=== PATIENT | female | born 1990 | race Caucasian/White ===

== ENCOUNTER 2016-11-01 18:30 | Emergency (ER) | payer BC ==
[2016-11-01] MEDS ORDERED: Sodium Chloride 0.9% 1,000 ML IV ONE (19:13)
[2016-11-01] MEDS ORDERED: Famotidine 20 MG/2 ML SDV IVPUSH ONE (20:11)
[2016-11-01] MEDS ORDERED: Alum Hydrox/Mag Hydrox/Simeth 15 ML, Metoclopramide 5 MG, Lidocaine 2% 5 ML PO ONE ×3 (20:11)
[2016-11-01 20:34] LABS: CHLORIDE,CL 108 mmol/L (98-110); SODIUM,NA 141 mmol/L (136-146)
--- NOTE | 2016-11-01 20:35 | EDM.PDOC ---
ED HPI GENERAL MEDICAL PROBLEM - General Chief Complaint: Abdominal Pain Stated Complaint: ABDOMINAL PAIN Time Seen by Provider: 11/01/16 21:00 Source of Information: Reports: Patient History Limitations: Reports: No Limitations - History of Present Illness INITIAL COMMENTS - FREE TEXT/NARRATIVE: History of present illness: [26-year-old female comes in complaining of increased abdominal pain there she indicates her right upper quadrant and then indicates that it is more periumbilical. Patient indicates that she understands it's hard to pinpoint and in fact now the whole abdomen isn't pain. Patient indicates that she is nauseated other times she feels like she needs to have bowel movements and she would have an improvement of her pain but yet she indicates she is having bowel movements and she has not vomited.] Review of systems: As per history of present illness and below otherwise all systems reviewed and negative. Past medical history: As per history of present illness and as reviewed below otherwise noncontributory. Surgical history: As per history of present illness and as reviewed below otherwise noncontributory. Social history: No reported history of drug or alcohol abuse. Family history: As per history of present illness and as reviewed below otherwise noncontributory. Physical exam: HEENT: Atraumatic, normocephalic, pupils reactive, negative for conjunctival pallor or scleral icterus, mucous membranes moist, throat clear, neck supple, nontender, trachea midline. Lungs: Clear to auscultation, breath sounds equal bilaterally, chest nontender. Heart: S1S2, regular, negative for clicks, rubs, or JVD. Abdomen: Soft, nondistended, generalized nonspecific tenderness Negative for masses or hepatosplenomegaly. Negative for costovertebral tenderness. Pelvis: Stable nontender. Genitourinary: Deferred. Rectal: Deferred. Extremities: Atraumatic, negative for cords or calf pain. Neurovascular unremarkable. Neuro: Awake, alert, oriented. Cranial nerves II through XII unremarkable. Cerebellum unremarkable. Motor and sensory unremarkable throughout. Exam nonfocal. Diagnostics: [CBC, CMP, ultrasound of the gallbladder, CT of abdomen with contrast] Therapeutics: [] Impression: [Abdominal] Plan: [Refer to surgery for further diagnostic evaluation such as possibly HIDA scan.] Definitive disposition and diagnosis as appropriate pending reevaluation and review of above. 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: Reports: - Past Surgical History Respiratory Surgical History: Reports: Other (See Below) Other Respiratory Surgeries/Procedures: Lung surgery Social & Family History - Family History Family Medical History: Noncontributory - Tobacco Use Smoking Status *Q: Current Every Day Smoker Years of Tobacco use: 8 Packs/Tins Daily: 1 - Caffeine Use Caffeine Use: Reports: Coffee Caffeine Use Comment: 2 cups daily - Alcohol Use Days Per Week of Alcohol Use: 1 Number of Drinks Per Day: 4 Total Drinks Per Week: 4 - Recreational Drug Use Recreational Drug Use: No ED ROS GENERAL - Review of Systems Review Of Systems: See Below (See history of present illness) ED EXAM, GI/ABD - Physical Exam Exam: See Below (History of present illness) Course - Vital Signs Last Recorded V/S: Last Vital Signs Temp 36.6 C 11/01/16 20:25 Pulse 62 11/01/16 20:25 Resp 16 11/01/16 18:41 BP 122/77 11/01/16 20:25 Pulse Ox 96 11/01/16 18:41 - Orders/Labs/Meds Orders: Active Orders 24 hr Category Date Time Status Abdomen Ltd [US] Stat Exams 11/01/16 19:11 Taken Abdomen Pelvis w Cont [CT] Stat Exams 11/01/16 21:25 Ordered Labs: Laboratory Tests 11/01/16 11/01/16 11/01/16 Range/Units 19:25 20:00 20:00 WBC 12.97 H (4.0-11.0) K/uL RBC 5.05 (4.30-5.90) M/uL Hgb 14.9 (12.0-16.0) g/dL Hct 44.3 (36.0-46.0) % MCV 87.7 (80.0-98.0) fL MCH 29.5 (27.0-32.0) pg MCHC 33.6 (31.0-37.0) g/dL RDW Std Deviation 41.3 (28.0-62.0) fl RDW Coeff of Rich 13 (11.0-15.0) % Plt Count 278 (150-400) K/uL MPV 10.90 (7.40-12.00) fL Neut % (Auto) 66.7 (48.0-80.0) % Lymph % (Auto) 23.6 (16.0-40.0) % [place] % (Auto) 7.3 (0.0-15.0) % Eos % (Auto) 2.1 (0.0-7.0) % Baso % (Auto) 0.3 (0.0-1.5) % Neut # (Auto) 8.7 H (1.4-5.7) K/uL Lymph # (Auto) 3.1 H (0.6-2.4) K/uL [place] # (Auto) 1.0 H (0.0-0.8) K/uL Eos # (Auto) 0.3 (0.0-0.7) K/uL Baso # (Auto) 0.0 (0.0-0.1) K/uL Nucleated RBC % 0.0 /100WBC Nucleated RBCs # 0 K/uL Sodium (136-146) mmol/L Potassium (3.5-5.1) mmol/L Chloride (98-110) mmol/L Carbon Dioxide (21-31) mmol/L BUN (6.0-23.0) mg/dL Creatinine (0.6-1.5) mg/dL Est Cr Clr Drug Dosing mL/min Estimated GFR (MDRD) ml/min Glucose (60-110) mg/dL Calcium (8.8-10.8) mg/dL Total Bilirubin (0.1-1.5) mg/dL AST (5-40) IU/L ALT (8-54) IU/L Alkaline Phosphatase (40-150) Total Protein (6.0-8.0) g/dL Albumin (3.5-5.0) g/dL Globulin (2.0-3.5) g/dL Albumin/Globulin Ratio (1.3-2.8) Urine Color YELLOW Urine Appearance CLEAR Urine pH 6.5 (5.0-8.0) Ur Specific [place] 1.020 (1.001-1.035) Urine Protein NEGATIVE (NEGATIVE) mg/dL Urine Glucose (UA) NEGATIVE (NEGATIVE) mg/dL Urine Ketones NEGATIVE (NEGATIVE) mg/dL Urine Occult Blood NEGATIVE (NEGATIVE) Urine Nitrite NEGATIVE (NEGATIVE) Urine Bilirubin NEGATIVE (NEGATIVE) Urine Urobilinogen 0.2 (<2.0) EU/dL Ur Leukocyte Esterase NEGATIVE (NEGATIVE) Urine RBC 0-2 (0-2/HPF) Urine WBC 0-3 (0-5/HPF) Ur Epithelial Cells MODERATE (NONE-FEW) Urine Bacteria FEW (NEGATIVE) Urine HCG, Qual NEGATIVE (NEGATIVE) 11/01/16 Range/Units 20:08 WBC (4.0-11.0) K/uL RBC (4.30-5.90) M/uL Hgb (12.0-16.0) g/dL Hct (36.0-46.0) % MCV (80.0-98.0) fL MCH (27.0-32.0) pg MCHC (31.0-37.0) g/dL RDW Std Deviation (28.0-62.0) fl RDW Coeff of Rich (11.0-15.0) % Plt Count (150-400) K/uL MPV (7.40-12.00) fL Neut % (Auto) (48.0-80.0) % Lymph % (Auto) (16.0-40.0) % [place] % (Auto) (0.0-15.0) % Eos % (Auto) (0.0-7.0) % Baso % (Auto) (0.0-1.5) % Neut # (Auto) (1.4-5.7) K/uL Lymph # (Auto) (0.6-2.4) K/uL [place] # (Auto) (0.0-0.8) K/uL Eos # (Auto) (0.0-0.7) K/uL Baso # (Auto) (0.0-0.1) K/uL Nucleated RBC % /100WBC Nucleated RBCs # K/uL Sodium 141 (136-146) mmol/L Potassium 3.9 (3.5-5.1) mmol/L Chloride 108 (98-110) mmol/L Carbon Dioxide 24 (21-31) mmol/L BUN 11 (6.0-23.0) mg/dL Creatinine 0.8 (0.6-1.5) mg/dL Est Cr Clr Drug Dosing 108.44 mL/min Estimated GFR (MDRD) > 60.0 ml/min Glucose 92 (60-110) mg/dL Calcium 8.8 (8.8-10.8) mg/dL Total Bilirubin 0.3 (0.1-1.5) mg/dL AST 13 (5-40) IU/L ALT 16 (8-54) IU/L Alkaline Phosphatase 75 (40-150) Total Protein 6.6 (6.0-8.0) g/dL Albumin 4.1 (3.5-5.0) g/dL Globulin 2.5 (2.0-3.5) g/dL Albumin/Globulin Ratio 1.6 (1.3-2.8) Urine Color Urine Appearance Urine pH (5.0-8.0) Ur Specific [place] (1.001-1.035) Urine Protein (NEGATIVE) mg/dL Urine Glucose (UA) (NEGATIVE) mg/dL Urine Ketones (NEGATIVE) mg/dL Urine Occult Blood (NEGATIVE) Urine Nitrite (NEGATIVE) Urine Bilirubin (NEGATIVE) Urine Urobilinogen (<2.0) EU/dL Ur Leukocyte Esterase (NEGATIVE) Urine RBC (0-2/HPF) Urine WBC (0-5/HPF) Ur Epithelial Cells (NONE-FEW) Urine Bacteria (NEGATIVE) Urine HCG, Qual (NEGATIVE) Meds: Medications Discontinued Medications Generic Name Dose Route Start Last Admin Trade Name Freq PRN Reason Stop Dose Admin Al Hydroxide/Mg Hydroxide 15 0 ml 11/01/16 20:11 11/01/16 20:25 ml/ Metoclopramide HCl 5 mg/ PO 11/01/16 20:12 1 each Lidocaine HCl 5 ml ONETIME ONE Administration Famotidine 20 mg 11/01/16 20:11 11/01/16 20:28 Pepcid IVPUSH 11/01/16 20:12 20 mg ONETIME ONE Administration Sodium Chloride 1,000 mls @ 999 mls/hr 11/01/16 19:13 11/01/16 19:28 Normal Saline IV 11/01/16 20:13 999 mls/hr STAT ONE Administration Iopamidol 100 ml 11/01/16 21:28 11/01/16 21:29 Isovue Multipack-370 (76%) IVPUSH 11/01/16 21:29 100 ml ONETIME STA Administration Ketorolac Tromethamine 30 mg 11/01/16 21:28 Toradol IVPUSH 11/01/16 21:29 ONETIME ONE Ondansetron HCl 8 mg 11/01/16 21:28 Zofran IVPUSH 11/01/16 21:29 ONETIME ONE Departure - Departure Time of Disposition: 22:51 Disposition: Home, Self-Care 01 Condition: good Clinical Impression: Abdominal pain - Discharge Information Instructions: Abdominal Pain, Adult, [id number] Forms: ED Department Discharge Additional Instructions: The following information is given to patients seen in the emergency department who are being discharged to home. This information is to outline your options for follow-up care. We provide all patients seen in our emergency department with a follow-up referral. The need for follow-up, as well as the timing and circumstances, are variable depending upon the specifics of your emergency department visit. If you don't have a primary care physician on staff, we will provide you with a referral. We always advise you to contact your personal physician following an emergency department visit to inform them of the circumstance of the visit and for follow-up with them and/or the need for any referrals to a consulting specialist. The emergency department will also refer you to a specialist when appropriate. This referral assures that you have the opportunity for follow-up care with a specialist. All of these measure are taken in an effort to provide you with optimal care, which includes your follow-up. Under all circumstances we always encourage you to contact your private physician who remains a resource for coordinating your care. When calling for follow-up care, please make the office aware that this follow-up is from your recent emergency room visit. If for any reason you are refused follow-up, please contact the [facility] Emergency Department at and asked to speak to the emergency department charge nurse. You're being given the name of the surgeon for further evaluation none of your exam was performed here in the ER were specific to any particular organ system that could be causing your pain but it cannot totally rule it out with some further diagnostics that are not obtainable via the ER Please followup with surgery as indicated Please return to ED as needed as discussed [facility] - General Surgery Professional Building [address] [place] [address], [address] [place] [address] - My Orders Last 24 Hours: My Active Orders 11/01/16 19:11 Abdomen Ltd [US] Stat 11/01/16 21:25 Abdomen Pelvis w Cont [CT] Stat - Assessment/Plan Last 24 Hours: My Active Orders 11/01/16 19:11 Abdomen Ltd [US] Stat 11/01/16 21:25 Abdomen Pelvis w Cont [CT] Stat
[2016-11-01] MEDS ORDERED: Ketorolac 30 MG/ML SDV IVPUSH ONE (21:28)
[2016-11-01] MEDS ORDERED: Iopamidol 755 MG/ML 500 ML Multipack Bottle IVPUSH STA (21:28)
[2016-11-01] MEDS ORDERED: Ondansetron 4 MG/2 ML SDV IVPUSH ONE (21:28)
[2016-11-01 23:36] VITALS: BP 117/67
--- NOTE | 2016-11-04 09:47 | US ---
EXAM DATE: 11/01/16 PATIENT'S AGE: 26 Patient: WILBERTO SIGALA Facility: [facility] Site . Site : 1990 Study: US-Abdomen [id number]/19/2017 8:02:43 PM Ordering Physician: Doctor Collazo Final Report: INDICATION: Right upper quadrant pain. TECHNIQUE: Ultrasound abdomen limited. Sonographic images of the right upper quadrant were obtained using garzon-scale and color Doppler images. COMPARISON: None. FINDINGS: Liver: Normal in size and echotexture. No masses. No intrahepatic biliary dilatation. Gallbladder: No stones or sludge. Normal wall thickness. No pericholecystic fluid. Common bile duct: 2 mm. Pancreas: Unremarkable. Right kidney: size cm. Normal echotexture and cortex. No masses, stones, or hydronephrosis. Vasculature: Visualized portions of IVC unremarkable. Abdominal aorta not evaluated. IMPRESSION: Negative right upper quadrant abdominal ultrasound. Dictated by Maurice Poe MD @ 11/01/2016 8:10:56 PM Dictated by: Maurice Poe MD @ 11/01/2016 20:11:03 Signed by: Maurice Poe MD @11/01/2016 8:11:03 PM (Electronic Signature) Report Signed by Proxy. RAMY
--- NOTE | 2016-11-04 09:48 | CT ---
EXAM DATE: 11/01/16 PATIENT'S AGE: 26 Patient: WILBERTO SIGALA Facility: [facility] Site . Site : 1990 Study: CT-Abdomen/Pelvis [id number]/19/2017 10:24:53 PM Ordering Physician: Doctor Collazo Final Report: INDICATION: Abdominal pain TECHNIQUE: CT abdomen and pelvis acquired with IV contrast. COMPARISON: None available FINDINGS: Lower chest: A 4 millimeter pleural-based right middle lobe nodule on image 9, likely postinflammatory in a patient of this age. Liver: Ill-defined decreased attenuation in the inferior aspect of the medial segment of the left hepatic lobe near the falciform ligament, likely focal fatty infiltration. Spleen: Unremarkable. Pancreas: Unremarkable. Gallbladder and bile ducts: Unremarkable. Adrenal glands: Unremarkable. Kidneys: Unremarkable. GI tract: No mechanical bowel obstruction. Fluid-filled lower abdominal and pelvic small bowel segments are nonspecific. A normal appendix. No significant pericolonic changes. Vascular structures: Unremarkable. Lymph nodes: Unremarkable. Miscellaneous: Unremarkable. No free air or significant free fluid. Pelvic Organs: Unremarkable. Bones: Unremarkable for age. IMPRESSION: No evidence of appendicitis, diverticulitis or bowel obstruction. Fluid-filled small bowel segments are nonspecific. Correlate for a mild enteritis. Dictated by Wilfredo Terrazas MD @ 11/01/2016 10:47:00 PM Dictated by: Wilfredo Terrazas MD @ 11/01/2016 22:47:11 Signed by: Wilfredo Terrazas MD @11/01/2016 10:47:11 PM (Electronic Signature) Report Signed by Proxy. [facility]ITAL[facility]kat
== END 2016-11-01 23:34 | disposition home or self-care (01) ==
LOC: MW.ED 18:30
DX: R10.84 Generalized abdominal pain (principal); J86.9 Pyothorax without fistula; F17.210 Nicotine dependence, cigarettes, uncomplicated; Z98.890 Other specified postprocedural states
CPT/HCPCS: 74177; 76705; 80053; 81001; 81025; 85025; 96361; 96374; 96375; 99284; A9270; J1885; J2405; J7040; Q9967